=== PATIENT | female | born 1985 | race African-American/Black ===

== ENCOUNTER 2016-10-10 20:22 | Inpatient (IN) | payer MEDICAID ==
[~2016-10-10] VITALS: Ht 170.2 cm; Wt 90.7 kg
[2016-10-10] MEDS ORDERED: levETIRAcetam 500 MG in D5W 110 ML IV ONE (20:30)
[2016-10-10] MEDS ORDERED: LORazepam Inj 2mg/ml 1ml IV ONE (20:30)
[2016-10-10] MEDS ORDERED: LORazepam Inj 2mg/ml 1ml ONE (20:31)
--- NOTE | 2016-10-10 20:34 | Emergency Room Report ---
History of Present Illness General Chief Complaint: Seizure Source: Patient, EMS Present Illness HPI Patient is a 30-year-old female who presented after having a tonic clonic seizure. Patient was noted to have a witnessed tonic-clonic seizure. The patient had been brought in by EMS. Patient had postictal confusion. History is limited by patient's postictal status. Allergies: Coded Allergies: No Known Allergies (Unverified , 10/10/16) Patient History Past Medical History: see triage record Last Menstrual Period: ukn Reviewed Nursing Documentation: PMH: Agreed, PSxH: Agreed Nursing Documentation-PMH Past Medical History: No Stated History Review of Systems All Other Systems: negative except mentioned in HPI Physical Exam Vital Signs Date Time Temp Pulse Resp B/P Pulse Ox O2 Delivery O2 Flow Rate FiO2 10/10/16 20:26 98.1 100 16 126/84 97 Room Air Sp02 EP Interpretation: reviewed, normal General Appearance: normal inspection, well appearing Head: atraumatic ENT: normal ENT inspection, hearing grossly normal, normal voice Neck: normal inspection, full range of motion, supple, no bony tend Respiratory: normal inspection, lungs clear, normal breath sounds, no respiratory distress, no retraction, no wheezing Cardiovascular #1: regular rate, rhythm, no edema Gastrointestinal: normal inspection, normal bowel sounds, non tender, soft, no guarding, no hernia Genitourinary: no CVA tenderness Musculoskeletal: normal inspection, back normal, normal range of motion Neurologic: other - postictal Skin: normal inspection, normal color, no rash Medical Decision Making Diagnostic Impression: Primary Impression: Epileptic seizure, generalized ER Course The patient denies prior history of seizure disorder. Patient was given IV Ativan and Keppra. Differential diagnosis included cysticercosis, electrolyte abnormality, mass lesion, or cranial hemorrhage. CT the head read by radiology showed no acute hemorrhage or CVA. EKG interpreted by me showed sinus tachycardia with a rate of 111. There appeared to be some rate related ischemia. Patient was given IV Zofran. The patient was given Tylenol for headache. I laboratory testing showed elevation of white blood count consistent with recent seizure as well as a metabolic acidosis consistent with recent seizure been started on IV fluids. Patient was noted to have evidence of seizure activity. The patient was noted to have negative serum test. Dr. Youngblood was contacted for inpatient management due to complexity of medical condition. Labs Test 10/10/16 20:50 White Blood Count 18.2 K/UL (4.8-10.8) Red Blood Count 4.24 M/UL (4.20-5.40) Hemoglobin 11.4 G/DL (12.0-16.0) Hematocrit 35.0 % (37.0-47.0) Mean Corpuscular Volume 83 FL (80-99) Mean Corpuscular Hemoglobin 26.9 PG (27.0-31.0) Mean Corpuscular Hemoglobin Concent 32.5 G/DL (32.0-36.0) Red Cell Distribution Width 17.5 % (11.6-14.8) Platelet Count 254 K/UL (150-450) Mean Platelet Volume 8.3 FL (6.5-10.1) Neutrophils (%) (Auto) % (45.0-75.0) Lymphocytes (%) (Auto) % (20.0-45.0) Monocytes (%) (Auto) % (1.0-10.0) Eosinophils (%) (Auto) % (0.0-3.0) Basophils (%) (Auto) % (0.0-2.0) Differential Total Cells Counted 100 Neutrophils % (Manual) 70 % (45-75) Lymphocytes % (Manual) 22 % (20-45) Monocytes % (Manual) 5 % (1-10) Eosinophils % (Manual) 1 % (0-3) Basophils % (Manual) 1 % (0-2) Band Neutrophils 1 % (0-8) Platelet Estimate Adequate Platelet Morphology Normal Hypochromasia 1+ Anisocytosis 1+ Sodium Level 140 mEQ/L (135-145) Potassium Level 4.1 mEQ/L (3.4-4.9) Chloride Level 99 mEQ/L (98-107) Carbon Dioxide Level 16 mEQ/L (20-30) Anion Gap 25 (5-15) Blood Urea Nitrogen 17 mg/dL (7-23) Creatinine 1.4 mg/dL (0.5-0.9) Estimat Glomerular Filtration Rate 44.4 mL/min (>60) Glucose Level 168 mg/dL (74-106) Calcium Level 8.5 mg/dL (8.6-10.2) Total Bilirubin < 0.2 mg/dL (0.0-1.2) Aspartate Amino Transf (AST/SGOT) 18 U/L (5-40) Alanine Aminotransferase (ALT/SGPT) 14 U/L (3-33) Alkaline Phosphatase 55 U/L (35-104) Total Protein 7.0 g/dL (6.6-8.7) Albumin 4.1 g/dL (3.5-5.2) Globulin 2.9 g/dL Albumin/Globulin Ratio 1.4 (1.0-2.7) Human Chorionic Gonadotropin, Qual Negative Valproic Acid (Depakene) Level < 3 ug/mL (50-100) Phenobarbital Level < 2.4 ug/mL (20.0-40.0) Serum Alcohol < 10 mg/dL Last Vital Signs Date Time Temp Pulse Resp B/P Pulse Ox O2 Delivery O2 Flow Rate FiO2 10/10/16 20:26 98.1 100 16 126/84 97 Room Air Status: unchanged Disposition: ADMITTED INPATIENT Condition: Serious Cristino Celaya Oct 10, 2016 20:34
[2016-10-10] MEDS ORDERED: levETIRAcetam 500mg vial IV ONE (20:39)
[2016-10-10 21:00] VITALS: BP 130/62
[2016-10-10 21:19] LABS: MEAN CORPUSCULAR HEMOGLOBIN 26.9 PG (27.0-31.0); MEAN CORPUSCULAR HGB CONC 32.5 G/DL (32.0-36.0); MEAN CORPUSCULAR VOLUME 83 FL (80-99); MEAN PLATELET VOLUME 8.3 FL (6.5-10.1); PLATELET COUNT 254 K/UL (150-450); RED BLOOD COUNT 4.24 M/UL (4.20-5.40); RED CELL DISTRIBUTION WIDTH 17.5 % (11.6-14.8); WHITE BLOOD COUNT 18.2 K/UL (4.8-10.8)
[2016-10-10 21:30] LABS: ALANINE AMINOTRANSFERASE 14 U/L (3-33); ALBUMIN/GLOBULIN RATIO 1.4 (1.0-2.7); ALCOHOL < 10 mg/dL; ANION GAP 25 (5-15); ASPARTATE AMINO TRANSFERASE 18 U/L (5-40); CALCIUM 8.5 mg/dL (8.6-10.2); CARBON DIOXIDE 16 mEQ/L (20-30); CHLORIDE 99 mEQ/L (98-107); CREATININE 1.4 mg/dL (0.5-0.9); GLOMERULAR FILTRATION RATE 44.4 mL/min (>60); HEMOLYSIS 5; POTASSIUM 4.1 mEQ/L (3.4-4.9); SODIUM 140 mEQ/L (135-145); VALPROIC ACID < 3 ug/mL (50-100)
[2016-10-10 22:25] LABS: ANISOCYTOSIS 1+; BAND NEUTROPHILS % (MANUAL) 1 % (0-8); BASOPHILS % (MANUAL) 1 % (0-2); EOSINOPHILS % (MANUAL) 1 % (0-3); HYPOCHROMASIA 1+; LYMPHOCYTES % (MANUAL) 22 % (20-45); NEUTROPHILS % (MANUAL) 70 % (45-75); PLATELET ESTIMATE ADEQUATE; PLATELET MORPHOLOGY NORMAL; TOTAL CELLS COUNTED 100
[2016-10-10 22:30] VITALS: BP 134/75
[2016-10-11] VITALS (10 sets, daily range): BP systolic 111–143; BP diastolic 57–76
[2016-10-11 02:13] LABS: APPEARANCE,URINE CLEAR; KETONES,URINE 1+ (NEGATIVE); LEUKOCYTE ESTERASE ,URINE NEGATIVE (NEGATIVE); NITRITE,URINE NEGATIVE (NEGATIVE); PH,URINE 5 (4.5-8.0); UROBILINOGEN,URINE NORMAL MG/DL (0.0-1.0)
[2016-10-11 02:15] LABS: PROTEIN,URINE NEGATIVE (NEGATIVE)
[2016-10-11] MEDS ORDERED: Zolpidem 5mg tab ORAL PRN (06:30)
[2016-10-11] MEDS ORDERED: Miralax 17gm pkt ORAL PRN (06:30)
[2016-10-11] MEDS ORDERED: Mylanta II UD 30ml ORAL PRN (06:30)
[2016-10-11] MEDS ORDERED: LORazepam Inj 2mg/ml 1ml IV PRN (06:30)
[2016-10-11] MEDS: Heparin 5000 units/ml inj SUBQ SCH ×2 (09:00→19:58)
--- NOTE | 2016-10-11 09:03 | Diagnostic Imaging Report ---
Indication: Altered mental status Technique: Contiguous 5 mm thick transaxial imaging of the head obtained in a Siemens Sensation [address] scanner. Soft tissue and bone windows generated. Total Dose length Product (DLP): Working [address] Dose Index Volume (CTDIvol): 70.38 mGy Comparison: none Findings: The size and configuration of the cortical sulci, basal cisterns, and ventricles are within normal limits for age. There is no mass effect, midline shift, or edema identified. There is no evidence of acute hemorrhage or abnormal intra-axial or extra-axial fluid collections. The bones and soft tissues are unremarkable. Impression: No mass effect, edema or acute bleed. The CT scanner at [facility] is accredited by the [employer] and the scans are performed using dose optimization techniques as appropriate to a performed exam including Automatic Exposure control.
[2016-10-11] MEDS: Morphine Sulfate 2mg/ml Inj IVP PRN ×3 (10:38→19:57)
--- NOTE | 2016-10-11 11:51 | Diagnostic Imaging Report ---
Indication: Pain Findings: 2 views of the right forearm were obtained. No acute fractures, malalignment, erosions or periostitis are identified. Bone mineralization is within normal limits. Soft tissues are unremarkable. Impression: Negative examination of the forearm.
--- NOTE | 2016-10-11 11:52 | Diagnostic Imaging Report ---
Indication: Pain Findings: 2 views of the right shoulder were obtained. There is an acute fracture of the greater tuberosity of the humerus. There is an anterior dislocation of the humerus as well. Impression: Acute fracture dislocation
--- NOTE | 2016-10-11 13:20 | Diagnostic Imaging Report ---
Indication: Pain Findings: 2 views of the right elbow were obtained. No acute fractures, malalignment, erosions or periostitis are identified. Bone mineralization is within normal limits. Soft tissues are unremarkable. Impression: Negative examination of the elbow.
--- NOTE | 2016-10-11 13:20 | Diagnostic Imaging Report ---
Indication: Pain Findings: 2 views of the left forearm were obtained. No acute fractures, malalignment, erosions or periostitis are identified. Bone mineralization is within normal limits. Soft tissues are unremarkable. Impression: Negative examination of the forearm.
--- NOTE | 2016-10-11 13:20 | Diagnostic Imaging Report ---
Indication: Pain Findings: 3 views of the left shoulder were obtained. There is an acute fracture of the humeral neck. Fracture fragments overlie and there is dislocation of the humeral head component anteriorly. Impression: Fracture dislocation
--- NOTE | 2016-10-11 14:22 | History and Physical ---
History of Present Illness General Date patient seen: Oct 11, 2016 Reason for Hospitalization: Seizure Present Illness HPI 30-year-old female who presented after having a tonic clonic seizure. Patient was noted to have a witnessed tonic-clonic seizure. The patient had been brought in by EMS. Patient had postictal confusion. History is limited by patient's postictal status. Allergies: Coded Allergies: No Known Allergies (Unverified , 10/10/16) Patient History Healthcare decision maker Resuscitation status Full Code Advanced Directive on File Past Medical/Surgical History Past Medical/Surgical History: (1) Epileptic seizure, generalized Review of Systems All Other Systems: negative except mentioned in HPI Physical Exam General Appearance: WD/WN, alert Lines, tubes and drains: peripheral, central line HEENT: normocephalic, atraumatic Neck: non-tender, normal alignment Respiratory/Chest: chest wall non-tender, lungs clear Breasts: no masses Cardiovascular/Chest: normal peripheral pulses Abdomen: normal bowel sounds, non tender Genitourinary/Rectal: normal genital exam Extremities: normal range of motion Last 24 Hour Vital Signs Date Time Temp Pulse Resp B/P Pulse Ox O2 Delivery O2 Flow Rate FiO2 10/11/16 12:00 97.9 102 19 124/66 93 Room Air 10/11/16 08:04 98.1 89 14 129/76 98 Room Air 10/11/16 06:20 97.6 98 21 111/67 98 Room Air 10/11/16 06:14 97.6 98 21 111/67 98 Room Air 10/11/16 05:24 85 21 121/61 97 Room Air 10/11/16 04:00 90 22 128/69 98 Room Air 10/11/16 03:00 82 15 126/57 98 Room Air 10/11/16 02:13 102 18 133/61 96 Room Air 10/11/16 01:03 98.0 10/11/16 01:00 101 14 97 Room Air 10/11/16 00:00 87 22 143/70 98 Room Air 10/10/16 22:30 121 26 134/75 97 Room Air 10/10/16 21:00 112 16 130/62 97 Room Air 10/10/16 21:00 112 16 Room Air 10/10/16 20:26 98.1 100 16 126/84 97 Room Air Intake and Output 10/10/16 10/11/16 18:59 06:59 Intake Total 0 ml Output Total 500 ml Balance -500 ml Intake Oral 0 ml Output Urine Total 500 ml Laboratory Tests Test 10/10/16 20:50 10/11/16 01:30 White Blood Count 18.2 K/UL (4.8-10.8) H Red Blood Count 4.24 M/UL (4.20-5.40) Hemoglobin 11.4 G/DL (12.0-16.0) L Hematocrit 35.0 % (37.0-47.0) L Mean Corpuscular Volume 83 FL (80-99) Mean Corpuscular Hemoglobin 26.9 PG (27.0-31.0) L Mean Corpuscular Hemoglobin Concent 32.5 G/DL (32.0-36.0) Red Cell Distribution Width 17.5 % (11.6-14.8) H Platelet Count 254 K/UL (150-450) Mean Platelet Volume 8.3 FL (6.5-10.1) Neutrophils (%) (Auto) % (45.0-75.0) Lymphocytes (%) (Auto) % (20.0-45.0) Monocytes (%) (Auto) % (1.0-10.0) Eosinophils (%) (Auto) % (0.0-3.0) Basophils (%) (Auto) % (0.0-2.0) Differential Total Cells Counted 100 Neutrophils % (Manual) 70 % (45-75) Lymphocytes % (Manual) 22 % (20-45) Monocytes % (Manual) 5 % (1-10) Eosinophils % (Manual) 1 % (0-3) Basophils % (Manual) 1 % (0-2) Band Neutrophils 1 % (0-8) Platelet Estimate Adequate Platelet Morphology Normal Hypochromasia 1+ Anisocytosis 1+ Sodium Level 140 mEQ/L (135-145) Potassium Level 4.1 mEQ/L (3.4-4.9) Chloride Level 99 mEQ/L (98-107) Carbon Dioxide Level 16 mEQ/L (20-30) L Anion Gap 25 (5-15) H Blood Urea Nitrogen 17 mg/dL (7-23) Creatinine 1.4 mg/dL (0.5-0.9) H Estimat Glomerular Filtration Rate 44.4 mL/min (>60) Glucose Level 168 mg/dL (74-106) H Calcium Level 8.5 mg/dL (8.6-10.2) L Total Bilirubin < 0.2 mg/dL (0.0-1.2) Aspartate Amino Transf (AST/SGOT) 18 U/L (5-40) Alanine Aminotransferase (ALT/SGPT) 14 U/L (3-33) Alkaline Phosphatase 55 U/L (35-104) Total Protein 7.0 g/dL (6.6-8.7) Albumin 4.1 g/dL (3.5-5.2) Globulin 2.9 g/dL Albumin/Globulin Ratio 1.4 (1.0-2.7) Human Chorionic Gonadotropin, Qual Negative Valproic Acid (Depakene) Level < 3 ug/mL (50-100) L Phenobarbital Level < 2.4 ug/mL (20.0-40.0) L Serum Alcohol < 10 mg/dL Urine Color Yellow Urine Appearance Clear Urine pH 5 (4.5-8.0) Urine Specific [place] 1.020 (1.005-1.035) Urine Protein Negative (NEGATIVE) Urine Glucose (UA) Negative (NEGATIVE) Urine Ketones 1+ (NEGATIVE) H Urine Occult Blood Negative (NEGATIVE) Urine Nitrite Negative (NEGATIVE) Urine Bilirubin Negative (NEGATIVE) Urine Urobilinogen Normal MG/DL (0.0-1.0) Urine Leukocyte Esterase Negative (NEGATIVE) Urine HCG, Qualitative Negative Urine Opiates Screen Negative (NEGATIVE) Urine Barbiturates Screen Negative (NEGATIVE) Phencyclidine (PCP) Screen Negative (NEGATIVE) Urine Amphetamines Screen Negative (NEGATIVE) Urine Benzodiazepines Screen Negative (NEGATIVE) Urine Cocaine Screen Negative (NEGATIVE) Urine Marijuana (THC) Screen Negative (NEGATIVE) Height (Feet): 5 Height (Inches): 7.00 Weight (Pounds): 200 Medications Current Medications Medications (Trade) Dose Ordered Sig/Sergio Route PRN Reason Start Time Stop Time Status Last Admin Dose Admin Acetaminophen (Tylenol) 650 mg Q4H PRN ORAL fever 10/11/16 06:30 11/10/16 06:29 Al Hydroxide/Mg Hydroxide (Mylanta II) 30 ml Q6H PRN ORAL dyspepsia 10/11/16 06:30 11/10/16 06:29 Dextrose (Dextrose 50%) STAT PRN IV Hypoglycemia 10/11/16 06:30 7/2/17 06:29 Heparin Sodium (Porcine) (Heparin 5000 units/ml) 5,000 units EVERY 12 HOURS SUBQ 10/11/16 09:00 11/10/16 08:59 Lorazepam (Ativan 2mg/ml 1ml) 2 mg EVERY HOUR PRN IV seizures 10/11/16 06:30 10/18/16 06:29 Morphine Sulfate (Morphine Sulfate) 1 mg Q4H PRN IVP For Pain 10/11/16 06:30 10/18/16 06:29 10/11/16 10:38 Ondansetron HCl (Zofran) 4 mg Q6H PRN IVP Nausea & Vomiting 10/11/16 06:30 11/10/16 06:29 Polyethylene Glycol (Miralax) 17 gm HSPRN PRN ORAL Constipation 10/11/16 06:30 11/10/16 06:29 Zolpidem Tartrate (Ambien) 5 mg HSPRN PRN ORAL Insomnia 10/11/16 06:30 11/10/16 06:29 Assessment/Plan Problem List: (1) Epileptic seizure, generalized ICD Codes: G40.309 - Generalized idiopathic epilepsy and epileptic syndromes, not intractable, without status epilepticus SNOMED: [id number] Assessment/Plan neuro evaluation continue prn benzo NORMAN DURAN Oct 11, 2016 14:22
--- NOTE | 2016-10-11 14:26 | Diagnostic Imaging Report ---
Indication: Pain Findings: 2 views of the left elbow were obtained. Unorthodox, suboptimal views of the left elbow showing no obvious fracture or joint effusion. Impression: No obvious acute injury
--- NOTE | 2016-10-11 17:29 | Neurology Progress Note ---
Objective Physical Exam Last Vital Signs Date Time Temp Pulse Resp B/P Pulse Ox O2 Delivery O2 Flow Rate FiO2 10/11/16 16:00 98.1 79 18 139/75 99 Room Air Laboratory Tests Test 10/10/16 20:50 10/11/16 01:30 White Blood Count 18.2 K/UL (4.8-10.8) H Red Blood Count 4.24 M/UL (4.20-5.40) Hemoglobin 11.4 G/DL (12.0-16.0) L Hematocrit 35.0 % (37.0-47.0) L Mean Corpuscular Volume 83 FL (80-99) Mean Corpuscular Hemoglobin 26.9 PG (27.0-31.0) L Mean Corpuscular Hemoglobin Concent 32.5 G/DL (32.0-36.0) Red Cell Distribution Width 17.5 % (11.6-14.8) H Platelet Count 254 K/UL (150-450) Mean Platelet Volume 8.3 FL (6.5-10.1) Neutrophils (%) (Auto) % (45.0-75.0) Lymphocytes (%) (Auto) % (20.0-45.0) Monocytes (%) (Auto) % (1.0-10.0) Eosinophils (%) (Auto) % (0.0-3.0) Basophils (%) (Auto) % (0.0-2.0) Differential Total Cells Counted 100 Neutrophils % (Manual) 70 % (45-75) Lymphocytes % (Manual) 22 % (20-45) Monocytes % (Manual) 5 % (1-10) Eosinophils % (Manual) 1 % (0-3) Basophils % (Manual) 1 % (0-2) Band Neutrophils 1 % (0-8) Platelet Estimate Adequate Platelet Morphology Normal Hypochromasia 1+ Anisocytosis 1+ Sodium Level 140 mEQ/L (135-145) Potassium Level 4.1 mEQ/L (3.4-4.9) Chloride Level 99 mEQ/L (98-107) Carbon Dioxide Level 16 mEQ/L (20-30) L Anion Gap 25 (5-15) H Blood Urea Nitrogen 17 mg/dL (7-23) Creatinine 1.4 mg/dL (0.5-0.9) H Estimat Glomerular Filtration Rate 44.4 mL/min (>60) Glucose Level 168 mg/dL (74-106) H Calcium Level 8.5 mg/dL (8.6-10.2) L Total Bilirubin < 0.2 mg/dL (0.0-1.2) Aspartate Amino Transf (AST/SGOT) 18 U/L (5-40) Alanine Aminotransferase (ALT/SGPT) 14 U/L (3-33) Alkaline Phosphatase 55 U/L (35-104) Total Protein 7.0 g/dL (6.6-8.7) Albumin 4.1 g/dL (3.5-5.2) Globulin 2.9 g/dL Albumin/Globulin Ratio 1.4 (1.0-2.7) Human Chorionic Gonadotropin, Qual Negative Valproic Acid (Depakene) Level < 3 ug/mL (50-100) L Phenobarbital Level < 2.4 ug/mL (20.0-40.0) L Serum Alcohol < 10 mg/dL Urine Color Yellow Urine Appearance Clear Urine pH 5 (4.5-8.0) Urine Specific [place] 1.020 (1.005-1.035) Urine Protein Negative (NEGATIVE) Urine Glucose (UA) Negative (NEGATIVE) Urine Ketones 1+ (NEGATIVE) H Urine Occult Blood Negative (NEGATIVE) Urine Nitrite Negative (NEGATIVE) Urine Bilirubin Negative (NEGATIVE) Urine Urobilinogen Normal MG/DL (0.0-1.0) Urine Leukocyte Esterase Negative (NEGATIVE) Urine HCG, Qualitative Negative Urine Opiates Screen Negative (NEGATIVE) Urine Barbiturates Screen Negative (NEGATIVE) Phencyclidine (PCP) Screen Negative (NEGATIVE) Urine Amphetamines Screen Negative (NEGATIVE) Urine Benzodiazepines Screen Negative (NEGATIVE) Urine Cocaine Screen Negative (NEGATIVE) Urine Marijuana (THC) Screen Negative (NEGATIVE) Impression/Recommendations Problems: (1) Epileptic seizure, generalized (2) left shoulder fx. Dislocated right shoulder Status: unchanged Recommendations #[id number] YESSY BOO Oct 11, 2016 17:29
--- NOTE | 2016-10-12 00:15 | Consultation ---
DATE OF CONSULTATION: 10/11/2016 NEUROLOGICAL CONSULTATION: CONSULTING PHYSICIAN: Facundo Helton M.D. REFERRING PHYSICIAN: Maria G Youngblood M.D. HISTORY OF PRESENT ILLNESS: This is a 30-year-old lady who is seen in neurological consultation to evaluate a new onset of seizure disorder. According to the patient, yesterday was somewhat unusual day as she was quite tired whole day long and evening time while sitting and chatting with her friend, she had a sudden loss of consciousness, described to have a generalized tonic-clonic activity, had a bitten tongue, and injured her both shoulders. Upon awakening, she was confused and disoriented. Her friends called her father, then ambulance came in and took her to the hospital. Her vital signs on admission, blood pressure 126/84, temperature 98.1. She was complaining of severe shoulder pain. Her initial laboratory work included a negative drug screen, CBC study with WBC 18.2. Chemistry panel abnormal with anion gap of 25, creatinine 1.4, and glucose 168. Negative test. Urinalysis was normal. Imagining studies revealed a normal CT scan of the brain. X-ray of the left shoulder revealed fracture/dislocation, and x-ray of right shoulder shows acute fracture dislocation. Since admission until present, the patient was given loading dose of Keppra 500 mg. Since admission to present, there was no further seizure activity. The patient continued to have acute pain in her both shoulders. She was helped to go to the bathroom, but she remained in bed preferring to stay motionless. Since admission until present, there were no further paroxysmal events. She was given morphine for pain management. PAST MEDICAL HISTORY: The patient denies any major medical problems. She is not on any treatment and she never had seizures. FAMILY HISTORY: Noncontributory. SOCIAL HISTORY: She is single, lives with her friends. She is a college student. She smokes cigarettes, but no alcohol and no drug abuse. REVIEW OF SYSTEMS: Acute pain in her both shoulders with any attempt to move. No headache, has a slight discomfort in her bitten tongue. No pain in upper and mid lower back. No pain in her lower extremities. No visual or hearing abnormalities. Denies any psychiatric problems in the past. PHYSICAL EXAMINATION: GENERAL: This is a well-developed and well-nourished lady, lying comfortably in bed. VITAL SIGNS: Now are stable. Blood pressure 139/75, heart rate 102, and afebrile. HEENT: Head is normocephalic. There is no evidence of injuries. Eyes, ears, and throat are clear. There is a slightly bitten tongue. MUSCULOSKELETAL: Revealed severe tenderness on minor touch to both shoulders, pain provoked by attempt to move her arms. Lower extremities within normal limits. Peripheral pulses 1+ symmetric. MENTAL STATUS: She is now alert and oriented x3 with no evidence of aphasia or apraxia. Cognitive function normal. The patient is very tense, anxious, and in discomfort due to pain. CRANIAL NERVE II: Pupils both responding to light and accommodation. Extraocular movement intact. No nystagmus. CRANIAL NERVE V: Normal corneal responses. CRANIAL NERVE VII: No facial asymmetry. CRANIAL NERVE VIII: Normal hearing. CRANIAL NERVE IX THROUGH XII: Within normal limits. MOTOR: Revealed normal muscle tone, strength in both hand needle polisher is limited due to pain. The patient was unable to move her arms and elbows due to pain. SHE HAD NORMAL STRENGTH AND TONE IN BOTH LOWER EXTREMITIES. DEEP TENDON REFLEXES NORMAL. BRACHIORADIALIS: Not tested triceps and biceps. Normal 1+ right knee and ankle jerks. Plantar response is flexor. SENSORY: Normal in all modalities. Gait not tested. The patient refused to ambulate stating that it causes her pain in her shoulders. IMPRESSION: 1. A single generalized tonic-clonic seizure episode. 2. Bilateral shoulder fracture dislocation. 3. Acute pain syndrome. RECOMMENDATION: 1. Stat orthopedic assessment. 2. Slings in both arms. 3. Start on Keppra 500 mg b.i.d. The patient has a single seizure episode, which may not be necessary to treat, but in case with aggravated postictal state with bilateral shoulder fracture, a seizure threshold becomes lower and use of Keppra 500 mg b.i.d. will be initiated. This is to be reassessed upon completion of orthopedic treatment. 4. CAT scan of the brain was negative, EEG is pending. Thank you for allowing me to see this interesting patient in neurological consultation. Facundo Helton M.D. DR: OLGA JOB#: [id number] CC:
[2016-10-12 00:16] VITALS: BP 143/69
[2016-10-12 04:31] VITALS: BP 144/86
[2016-10-12 06:53] LABS: BASOPHILS % (AUTO) 0.7 % (0.0-2.0); EOSINOPHILS % (AUTO) 0.1 % (0.0-3.0); LYMPHOCYTES % (AUTO) 13.9 % (20.0-45.0); MEAN CORPUSCULAR HEMOGLOBIN 24.5 PG (27.0-31.0); MEAN CORPUSCULAR HGB CONC 31.3 G/DL (32.0-36.0); MEAN CORPUSCULAR VOLUME 78 FL (80-99); MEAN PLATELET VOLUME 8.4 FL (6.5-10.1); MONOCYTES % (AUTO) 6.5 % (1.0-10.0); NEUTROPHILS % (AUTO) 78.8 % (45.0-75.0); PLATELET COUNT 229 K/UL (150-450); RED BLOOD COUNT 4.15 M/UL (4.20-5.40); RED CELL DISTRIBUTION WIDTH 17.1 % (11.6-14.8); WHITE BLOOD COUNT 10.3 K/UL (4.8-10.8)
[2016-10-12 07:04] LABS: ALANINE AMINOTRANSFERASE 16 U/L (3-33); ALBUMIN/GLOBULIN RATIO 1.2 (1.0-2.7); ANION GAP 14 (5-15); ASPARTATE AMINO TRANSFERASE 28 U/L (5-40); CALCIUM 8.8 mg/dL (8.6-10.2); CARBON DIOXIDE 26 mEQ/L (20-30); CHLORIDE 98 mEQ/L (98-107); CREATININE 0.8 mg/dL (0.5-0.9); GLOMERULAR FILTRATION RATE > 60 mL/min (>60); HEMOLYSIS 3; POTASSIUM 3.2 mEQ/L (3.4-4.9); SODIUM 138 mEQ/L (135-145); TOTAL PROTEIN 6.6 g/dL (6.6-8.7)
[2016-10-12 08:00] VITALS: BP 150/85
--- NOTE | 2016-10-12 08:35 | Consultation ---
Consult Note Consult Note patient seen/evaluated. Patient is a 30 yo female states that she injured her bilateral shoulder last Friday (7 days ago) from an "accident". She does not recall the accident very well, but patient was seen having a tonic colonic seizure 2 days ago and was admitted to the hospital. Not clear how many times and for how long she has had these seizures. Complain of bilateral shoulder pain yesterday and last night was noted to have bilateral shoulder fracture dislocation. Not clear how long the fracture dislocation are present. PMH: Seizure disorder PSH: None Meds: As Per Chart Allergies: NKDA SH: Smoke one pack a day, Does not drink, no other drug use FH: None contributory ROS: confusion after seizure, otherwise no other significant findings. Physical Exam: Decrease ROM and pain with bilateral shoulder. +deformity Neuro with some decrease sensation over axillary nerve distribution. Xray: Bilateral shoulder fracture dislocation with displacement A/p: 30 yoF with bilateral fracture dislocation fo the shoulder for at least 2 days, most likely for one week 1. patient requires ORIF and reduction fo the fractures/dislocation as soon as possible 2. This requires tertiary care and I contacted Dr. Dev Inman at [facility] and he has accepted the orthopedic transfer of the patient 3. I spoke with the transfer line at [facility] who will contact Dr. Inman for transfer of patient as soon as possible 4. Patient requires neurology eval and treatment at [facility] as well as internal medicine management and will be coordinated by Dr. Spain and Through the transfer line/TENISHA Newby Oct 12, 2016 08:35
--- NOTE | 2016-10-12 08:40 | Consultation ---
Consult Note Consult Note update on Transfer [facility] has bed available. However requires letter of agreement from patients insurance before transfer. Beds are available for transfer at this point, but pending the letter of agreement. [facility] transfer team and [facility] nurse and Nurse winder hand are aware of the urgent nature of treating the fracture dislocation. I discussed with the nurse/grain operations manager to proceed with contacting the insurance for letter of transfer on urgent basis for higher level of Care due to complexity of fracture/dislocation. TENISHA BETANCUR Oct 12, 2016 08:40
[2016-10-12] MEDS: Morphine Sulfate 2mg/ml Inj IVP PRN (10:17)
[2016-10-12] MEDS: Heparin 5000 units/ml inj SUBQ SCH ×2 (10:23→20:44)
[2016-10-12 12:00] VITALS: BP 141/68
--- NOTE | 2016-10-12 14:51 | Pulmonology Progress Note ---
Assessment/Plan Assessment/Plan ASSESSMENT new onset of seizure disorder bilateral shoulder fracture dislocation with displacement hypokalemia active smoker PLAN OF CARE MS floor X ray R shoulder with acute fracture of the greater tuberosity of the humerus X ray L shoulder - acute fracture of humeral neck bilateral X ray of forearm and elbow - negative neuro follows seizure precautions no new seizure activity Keppra and Ativan prn for breakthrough seziures Ct head negative EEG pending ortho eval appreciated need surgery ORIF and transfer to tertiary care center bilateral slings awaiting for transfer to [facility] pain management DVT prophylaxis replete K case discussed and evaluated by supervising physician Subjective Allergies: Coded Allergies: No Known Allergies (Unverified , 10/10/16) Subjective seen by ortho awaiting for transfer to [facility] for surgery no new seizure activity leucocytosis resolved Objective Last 24 Hour Vital Signs Date Time Temp Pulse Resp B/P Pulse Ox O2 Delivery O2 Flow Rate FiO2 10/12/16 12:00 99.7 101 20 141/68 100 Room Air 10/12/16 08:00 98.4 91 20 150/85 98 Room Air 10/12/16 04:31 99.0 87 20 144/86 98 Room Air 10/12/16 00:16 99.1 86 19 143/69 98 Room Air 10/11/16 20:25 98.4 102 19 138/70 99 Room Air 10/11/16 16:00 98.1 79 18 139/75 99 Room Air Intake and Output 10/11/16 10/12/16 19:00 07:00 Intake Total 800 ml Balance 800 ml Intake Oral 800 ml # Voids 7 General Appearance: WD/WN, no acute distress, other - awake, alert, obese AA female in NAD HEENT: normocephalic, atraumatic, anicteric, mucous membranes moist, PERRL Respiratory/Chest: lungs clear, no respiratory distress, no accessory muscle use Cardiovascular: normal rate, regular rhythm, no JVD Abdomen: normal bowel sounds, soft, non tender - obese Extremities: other - bilateral UE slings Neurologic/Psychiatric: no motor/sensory deficits, alert, responsive Musculoskeletal: normal muscle bulk Laboratory Tests 10/12/16 04:45: White Blood Count 10.3, Red Blood Count 4.15L, Hemoglobin 10.2L, Hematocrit 32.5L, Mean Corpuscular Volume 78L, Mean Corpuscular Hemoglobin 24.5L, Mean Corpuscular Hemoglobin Concent 31.3L, Red Cell Distribution Width 17.1H, Platelet Count 229, Mean Platelet Volume 8.4, Neutrophils (%) (Auto) 78.8H, Lymphocytes (%) (Auto) 13.9L, Monocytes (%) (Auto) 6.5, Eosinophils (%) (Auto) 0.1, Basophils (%) (Auto) 0.7, Sodium Level 138, Potassium Level 3.2L, Chloride Level 98, Carbon Dioxide Level 26, Anion Gap 14, Blood Urea Nitrogen 5L, Creatinine 0.8, Estimat Glomerular Filtration Rate > 60, Glucose Level 106, Calcium Level 8.8, Total Bilirubin 0.3, Aspartate Amino Transf (AST/SGOT) 28, Alanine Aminotransferase (ALT/SGPT) 16, Alkaline Phosphatase 50, Total Protein 6.6, Albumin 3.7, Globulin 2.9, Albumin/Globulin Ratio 1.2 Current Medications Medications (Trade) Dose Ordered Sig/Sergio Route PRN Reason Start Time Stop Time Status Last Admin Dose Admin Acetaminophen (Tylenol) 650 mg Q4H PRN ORAL fever 10/11/16 06:30 11/10/16 06:29 Al Hydroxide/Mg Hydroxide (Mylanta II) 30 ml Q6H PRN ORAL dyspepsia 10/11/16 06:30 11/10/16 06:29 Dextrose (Dextrose 50%) STAT PRN IV Hypoglycemia 10/11/16 06:30 11/10/16 06:29 Heparin Sodium (Porcine) (Heparin 5000 units/ml) 5,000 units EVERY 12 HOURS SUBQ 10/11/16 09:00 11/10/16 08:59 10/12/16 10:23 Levetiracetam (Keppra) 500 mg Q12HR ORAL 10/11/16 18:00 11/10/16 17:59 10/12/16 10:16 Lorazepam (Ativan 2mg/ml 1ml) 2 mg EVERY HOUR PRN IV seizures 10/11/16 06:30 10/18/16 06:29 Morphine Sulfate (Morphine Sulfate) 1 mg Q4H PRN IVP For Pain 10/11/16 06:30 10/18/16 06:29 10/12/16 10:17 Ondansetron HCl (Zofran) 4 mg Q6H PRN IVP Nausea & Vomiting 10/11/16 06:30 11/10/16 06:29 Polyethylene Glycol (Miralax) 17 gm HSPRN PRN ORAL Constipation 10/11/16 06:30 11/10/16 06:29 Zolpidem Tartrate (Ambien) 5 mg HSPRN PRN ORAL Insomnia 10/11/16 06:30 11/10/16 06:29 Abel OrtegaTanisha duran NP Oct 12, 2016 14:51
[2016-10-12] MEDS ORDERED: TYLENOL650 MG/20. ORAL ×2 (17:53→17:54)
[2016-10-12] MEDS ORDERED: MYLANTA II30 ML PO (17:55)
[2016-10-12] MEDS ORDERED: LEVETIRACE500 MG/51 PO (17:56)
[2016-10-12] MEDS ORDERED: HEPARIN SO5000 UNIT2 SUBQ (17:56)
[2016-10-12] MEDS ORDERED: LORAZEPAM4 MG/1 M1 IV (17:58)
[2016-10-12] MEDS ORDERED: MORPHINE 22 MG/1 ML IV (17:59)
[2016-10-12] MEDS ORDERED: ZOFRAN 4 MG4 MG/2 ML IV (17:59)
[2016-10-12] MEDS ORDERED: MIRALAX17 G2 ORAL (18:00)
[2016-10-12] MEDS ORDERED: ZOLPIDEM TARTRAT5 MG ORAL (18:01)
[2016-10-12] MEDS ORDERED: LEVETIRACETAM250 MG PO (18:02)
[2016-10-13] VITALS: BP 138/84
[2016-10-13] MEDS ORDERED: NS 275ml ONE (00:22)
[2016-10-13] MEDS ORDERED: Tubing IV Secondary IV ONE (00:22)
--- NOTE | 2016-10-13 01:09 | Cardiology Report ---
APPROVED REPORT EKG Measurement Heart [id number] abnormality, possible inferior and lateral subendocardial injury Abnormal ECG
--- NOTE | 2016-10-14 14:12 | Discharge Summary ---
Discharge Summary Hospital Course Date of Admission Oct 11, 2016 at 05:00 Date of Discharge Oct 13, 2016 at 00:23 Admitting Diagnosis NEW ONSET SEIZURE HPI Cassi Barney is a 30 year old female who was admitted on Oct 11, 2016 at 05:00 for New Onset Seizure Hospital Course dc summary #[id number] Discharge Medications Continued Medications: Acetaminophen (Acetaminophen) 650 Mg/20.3 Ml Solution 650 MG ORAL Q4HR PRN for Mild Pain/Temp > 100.5, ML 0 Refills Al Hydroxide/mg Hydroxide (Mag-Al Plus Suspension) 30 Ml Oral.susp 30 ML PO, ML Heparin Sod (Porcine) (Heparin Sodium*) 5 000/1 Ml Vial 5000 UNITS SUBQ EVERY 12 HOURS, VIAL Levetiracetam (Levetiracetam) 250 Mg Tablet 500 MG PO Q12HR, TAB Lorazepam (Lorazepam) 4 Mg/1 Ml Vial 2 MG IV EVERY HOUR for For Seizures, VIAL Morphine Sulfate* (Morphine Sulfate*) 2 Mg/1 Ml Cartridge 1 MG IV Q4HR for For Pain, EA Ondansetron* (Zofran*) 4 Mg/2 Ml Vial 4 MG IV Q6H PRN for Nausea & Vomiting, VIAL Polyethylene Glycol 3350* (Miralax*) 17 Gm Powd.pack 17 GM ORAL HS, PACKET Zolpidem Tartrate* (Zolpidem Tartrate*) 5 Mg Tablet 5 MG ORAL BEDTIME PRN for Insomnia, TAB 0 Refills Discharge Condition Upon Discharge: stable Discharge Disposition Patient was discharged to Acute Care Facility(02) Discharge Diagnoses: Abel (Maribeth)Tanisha NP Oct 14, 2016 14:12
--- NOTE | 2016-10-15 04:15 | Discharge Summary 2 SIG ---
DATE OF ADMISSION: 10/11/2016 DATE OF DISCHARGE: 10/13/2016 The patient was admitted under Dr. Youngblood. REASON FOR ADMISSION: The patient is a 30-year-old female, presented to the emergency room after having first episode of the tonic-clonic seizure. It appears that her tonic-clonic seizure was witnessed. The patient was brought to the emergency room by paramedics. The patient was in postictal confusion and history was limited due to the patient's postictal confusion. Vital signs were stable. CT of the head revealed no acute intracranial pathology or CVA. EKG revealed sinus tachycardia with sinus rhythm at 111. No acute ischemic changes. The patient noted to be white blood count of 18.2, anion gap 25, CO2 16, BUN 17, and creatinine 1.4. LFT stable. test negative. Depakote and phenobarbital level negative. Serum alcohol level less than 10. The patient is admitted for further management. ADMITTING DIAGNOSIS: Includes new onset of seizures. HOSPITAL STAY: The patient complained of pain in bilateral shoulders. The patient stated that she fell, but not remember how. Apparently, it happened during her having tonic-clonic seizure. Subsequently, bilateral shoulder x-ray as well as the forearm and elbow x-ray were done. X-ray of the right shoulder revealed acute fracture of the greater tuberosity of the humerus. X-ray of the left shoulder revealed acute fracture of the humeral neck. Bilateral x-ray of forearm and elbow were negative. Orthopedic surgeon consult was requested along with neurologist. Neurologist seen the patient. The patient was on seizure precaution. Sitter at the bedside for safety. No new seizure activity. The patient was started on Keppra and Ativan as needed for breakthrough seizure, but no new seizure activity while in the hospital. Orthopedic surgeon seen the patient. According to orthopedic surgeon, the patient needs open reduction and internal fixation, but needs to be transferred to tertiary care center. At this point, bilateral splints were applied. The patient was waiting for transfer to [facility]. Pain management provided. DVT prophylaxis provided. Potassium was repleted. The patient was counseled on smoking cessation. Due to the insurance purposes, even though the bed available early in the morning in [facility], the patient was not able to be transferred. She needed an agreement from the patient's insurance. However, it happened unfortunately on Friday and case sealer was not able to get in touch with the insurance. The patient needed to be transferred to [facility]. The patient was transferred to [facility]. It was communicated that the patient is in need of urgent surgery. DISCHARGE DIAGNOSES: Includes: 1. New onset of tonic-clonic seizures. 2. Bilateral shoulder fracture dislocation with displacement. 3. Active smoker. 4. Hypokalemia. DISCHARGE MEDICATIONS: See medication reconciliation list. DISCHARGE INSTRUCTIONS: The patient was transferred to [facility] for urgent surgery. The patient will follow up with medical doctor and orthopedic surgeon at the facility. Maria G Youngblood M.D. I have been assigned to dictate discharge summary on this account and I was not involved in the patient's management. Tanisha [facility] center[facility] N.PNani DR: OPAL JOB#: [id number] CC:
== END 2016-10-13 00:23 | disposition short-term general hospital (02) | DRG 53 ==
LOC: EDBD 20:22 → EMR 21:12 → 4E 10-11 05:00 → EDBEDREQ 10-11 05:31 → 4E 10-11 06:45
DX: G40.409 Other generalized epilepsy and epileptic syndromes, not intractable, without status epilepticus (principal); R00.1 Bradycardia, unspecified; E87.6 Hypokalemia; F17.210 Nicotine dependence, cigarettes, uncomplicated; S42.92XA Fracture of left shoulder girdle, part unspecified, initial encounter for closed fracture; S42.91XA Fracture of right shoulder girdle, part unspecified, initial encounter for closed fracture; X58.XXXA Exposure to other specified factors, initial encounter; Y92.89 Other specified places as the place of occurrence of the external cause
CPT/HCPCS: 36415; 70450; 80053; 80164; 80184; 80299; 80300; 80329; 81003; 81025; 84703; 85007; 85025; 93005; J2405; J8499